=== PATIENT | male | born 1990 | race Caucasian/White ===

== ENCOUNTER 2017-03-18 14:39 | Emergency (ER) | payer MEDICAID ==
[~2017-03-18] VITALS: Ht 175.3 cm; Wt 95.0 kg
[~2017-03-18 14:39] MED LIST: BUPR1FIL SL; CLON-275 PO; CLON2TAB2; HYDR-67; IBUP200C8; METH5TAB2 PO; OMEP10CA4 PO; TRAM100C2
[2017-03-18 14:46] VITALS: BP 151/95
[2017-03-18 16:20] LABS: BLOOD UREA NITROGEN 7 mg/dL (7-18)
[2017-03-18] MEDS ORDERED: IBUPROFEN 200 MG TABLET ONE (16:48)
[2017-03-18] MEDS ORDERED: IBUPROFEN 200 MG TABLET PO ONE (17:00)
== END 2017-03-18 17:14 | disposition home or self-care (01) ==
LOC: ED 17:08
DX: M54.16 Radiculopathy, lumbar region (principal); M25.552 Pain in left hip; M25.551 Pain in right hip; M25.562 Pain in left knee; M25.561 Pain in right knee; M25.572 Pain in left ankle and joints of left foot; M25.571 Pain in right ankle and joints of right foot; I10 Essential (primary) hypertension
CPT/HCPCS: 36415; 80048; 82040; 82550; 83735; 99284

== ENCOUNTER 2019-06-13 00:08 | Emergency (ER) | payer MEDICAID ==
[~2019-06-13] VITALS: Ht 175.3 cm; Wt 82.0 kg
[~2019-06-13 00:08] MED LIST changes: -CLON2TAB2; +CLON2TAB9; -OMEP10CA4 PO; +OMEP10CA5 PO
[2019-06-13] MEDS ORDERED: BUPR1FIL5 PO (00:21)
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
[2019-06-13] MEDS ORDERED: HYDROcodone/APAP 5/325 TABLET PO PRN (01:00)
[2019-06-13] MEDS ORDERED: HYDROcodone/APAP 5/325 TABLET ONE (01:13)
[2019-06-13] MEDS ORDERED: ACETAMINOPHEN 500 MG TABLET ONE ×2 (01:36→02:23)
[2019-06-13] MEDS ORDERED: KETOROLAC 30 MG/1 ML ONE (02:23)
[2019-06-13] MEDS ORDERED: ACETAMINOPHEN 500 MG TABLET PO ONE (02:30)
[2019-06-13] MEDS ORDERED: KETOROLAC 30 MG/1 ML IM ONE (02:30)
[2019-06-13] MEDS ORDERED: METHOCARBAMOL 750 MG TABLET ONE ×2 (02:31)
--- NOTE | 2019-06-13 02:38 | NUR ---
patient medicated for pain NSAIDS. no narcotics. discharged with instruction. verbalized understanding.
[2019-06-13 02:39] VITALS: BP 142/78
[2019-06-13] MEDS ORDERED: METHOCARBAMOL 750 MG TABLET PO ONE (03:00)
== END 2019-06-13 02:41 | disposition home or self-care (01) ==
LOC: ED 02:35
DX: S22.31XA Fracture of one rib, right side, initial encounter for closed fracture (principal); M25.511 Pain in right shoulder; M79.621 Pain in right upper arm; M25.512 Pain in left shoulder; I10 Essential (primary) hypertension; R51 Headache; Y04.8XXA Assault by other bodily force, initial encounter; Y93.89 Activity, other specified; Y92.009 Unspecified place in unspecified non-institutional (private) residence as the place of occurrence of the external cause; Y99.8 Other external cause status
CPT/HCPCS: 70450; 71045; 72072; 72125; 73030; 73564; 96372; 99285; J1885

== ENCOUNTER 2019-10-30 10:11 | Inpatient (IN) | payer MEDICAID ==
[~2019-10-30] VITALS: Ht 175.3 cm; Wt 89.3 kg
[~2019-10-30 10:11] MED LIST changes: +BUPR1FIL5 PO
--- NOTE | 2019-10-30 10:17 | NUR ---
EKG IN TRIAGE
--- NOTE | 2019-10-30 10:35 | NUR ---
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
--- NOTE | 2019-10-30 10:48 | NUR ---
FIRST CONTACT WITH PT. UNABLE TO KEEP ANY FOOD OR DRINK DOWN FOR 3 DAYS. HX OF PANCREATITIS AND IT FEELS THE SAME. HX OF ETOH. C/O ABD PAIN WITH N/V. PT'S AOX4. RESPS EVEN AND UNLABORED. SINUS TACHY RATE 130'S ON [employer] AT THIS TIME. PT DENIES CP/SOB. ALL MONITORS IN PLACE. CALL LIGHT WITHIN REACH. EDMD AT BEDSIDE TO EVALUATE AT THIS TIME.
[2019-10-30] MEDS ORDERED: FAMOTIDINE 20 MG/2 ML ONE (10:53)
[2019-10-30] MEDS ORDERED: MORPHINE SULFATE 4 MG/ML, 1ML ONE (10:53)
[2019-10-30] MEDS ORDERED: ONDANSETRON 2MG/ML, 2ML ONE (10:53)
--- NOTE | 2019-10-30 10:58 | NUR ---
P TO XRAY AT THIS TIME.
--- NOTE | 2019-10-30 10:58 | NUR ---
PT PROVIDED URINE SAMPLE. URINE COLLECTED. UA SENT AT THIS TIME.
[2019-10-30] MEDS ORDERED: SODIUM CHLORIDE 0.9% 1,000ML IVBOLUS ONE (11:00)
[2019-10-30] MEDS ORDERED: ONDANSETRON 2MG/ML, 2ML IVPush ONE (11:00)
[2019-10-30] MEDS ORDERED: SODIUM CHLORIDE FLUSH 10ML SYR IVF ONE (11:00)
[2019-10-30] MEDS ORDERED: FAMOTIDINE 20 MG/2 ML IV ONE (11:00)
[2019-10-30] MEDS: MORPHINE SULFATE 4 MG/ML, 1ML IVPush PRN (11:14)
--- NOTE | 2019-10-30 11:21 | NUR ---
PIV EST ON R FOREARM WITH NO COMPLICATIONS. PT MEDICATED PER EMAR. NS INFUSING AT THIS TIME. PT TOLERATED WELL.
[2019-10-30 11:28] LABS: MICROSCOPIC INDICATED
[2019-10-30 11:44] LABS: MEAN CORPUSCULAR HEMOGLOBIN 33.3 pg (27.5-34.5); MEAN CORPUSCULAR HGB CONC 33.6 g/dL (33.2-36.2); MEAN CORPUSCULAR VOLUME 99.1 fL (81-97); MEAN PLATELET VOLUME 8.1 fL (7.4-10.4); PLATELET COUNT 240 x10^3/uL (130-400); RED BLOOD COUNT 4.53 x10^6/uL (4.38-5.82); RED CELL DISTRIBUTION WIDTH 17.4 % (9.4-14.8)
[2019-10-30 11:56] LABS: ALANINE AMINOTRANSFERASE 75 U/L (12-78); ANION GAP 10 mmol/L (5-15); CALCIUM 8.6 mg/dL (8.5-10.1); CHLORIDE 95 mmol/L (98-107); CREATININE 0.73 mg/dL (0.7-1.3)
[2019-10-30 11:58] LABS: ALKALINE PHOSPHATASE 197 U/L (45-117); BILIRUBIN,TOTAL 1.7 mg/dL (0.2-1.0); TOTAL PROTEIN 8.5 g/dL (6.4-8.2)
[2019-10-30] MEDS ORDERED: POTASSIUM CHLORIDE 40 MEQ in SODIUM CHLORIDE 0.9% 500 ML IV ONE (12:00)
[2019-10-30] MEDS ORDERED: SODIUM CHLORIDE 0.9% 1,000 ML IV ONE (12:01)
[2019-10-30 12:15] LABS: MD YES
[2019-10-30] MEDS ORDERED: LISI-170 PO (12:16)
[2019-10-30] MEDS ORDERED: METO25TA35 PO (12:16)
[2019-10-30] MEDS ORDERED: METH750T87 PO (12:17)
[2019-10-30] MEDS ORDERED: IBUP-1223 PO (12:17)
[2019-10-30 12:18] LABS: BAND#(MANUAL) 1.24 x10^3/uL; BANDS%(MANUAL) 9 % (0-7); LYMPH#(MANUAL) 0.83 x10^3/uL (1-3.4); LYMPHS% (MANUAL) 6 % (22-44); MONOS#(MANUAL) 1.52 x10^3/uL (0.3-2.7); MONOS% (MANUAL) 11 % (2-9); SEG#(MANUAL) 10.21 x10^3/uL (1.8-6.8); SEGS% (MANUAL) 74 % (42-75)
[2019-10-30 12:19] LABS: <RBC MORPHOLOGY> NORMAL; TOXIC GRAN 1+
[2019-10-30 12:20] LABS: <PLATELET ESTIMATE> ADEQUATE; <PLT MORPHOLOGY> NORMAL PLT MORPH; PMNS WITH VACUOLES 1+
--- NOTE | 2019-10-30 12:20 | NUR ---
MEDICATION ORDERED FROM PHARMACY AT THIS TIME.
--- NOTE | 2019-10-30 12:28 | NUR ---
THIS RN CALLED FOR REPORT X1. NO ANSWER.
[2019-10-30] MEDS ORDERED: LIDODERM 5% PATCH TD PRN (12:30)
[2019-10-30] MEDS ORDERED: BISACODYL 10 MG SUPP PR PRN (12:30)
[2019-10-30] MEDS: NICOTINE 21 MG/24 HR PATCH.TD24 TD SCH (12:30)
[2019-10-30] MEDS ORDERED: hydrALAzine 20 MG/ML, 1ML IVPush PRN (12:30)
--- NOTE | 2019-10-30 12:36 | NUR ---
REPORT GIVEN TO KAILYN LINARES. ALL QUESTIONS ANSWERED.
[2019-10-30 12:48] LABS: INTERNATIONAL NORMALIZED RATIO 2.7 (0.93-1.1); PROTHROMBIN TIME 28.9 Seconds (9.6-11.5)
[2019-10-30 13:03] LABS: HCT (SEDRATE) 41.5 % (39.2-51.8)
[2019-10-30 13:21] VITALS: BP 142/108
[2019-10-30 13:33] LABS: FREE T4 (FREE THYROXINE) 1.96 ng/dL (0.76-1.46)
[2019-10-30 13:56] VITALS: BP 142/108
[2019-10-30] MEDS: POTASSIUM CHLORIDE 20 MEQ, MAGNESIUM SULFATE 2 GM, THIAMINE 200 MG, MVI ADULT 10 ML, FO... IV SCH ×2 (14:17→22:40)
[2019-10-30] MEDS: ENOXAPARIN 40 MG/0.4 ML SQ SCH (16:17)
[2019-10-30 18:27] VITALS: BP 131/89
[2019-10-30] MEDS: morphine SULFATE 10 MG/ML, 1ML IVPush PRN (18:36)
[2019-10-30] MEDS: ONDANSETRON 2MG/ML, 2ML IVPush PRN (18:36)
[2019-10-30] MEDS: LORazepam 2 MG/ML, 1ML IVPush PRN (21:00)
[2019-10-31 00:24] VITALS: BP 140/98
[2019-10-31] MEDS: morphine SULFATE 10 MG/ML, 1ML IVPush PRN ×4 (01:53→20:16)
[2019-10-31] MEDS: ONDANSETRON 2MG/ML, 2ML IVPush PRN ×2 (01:53→16:59)
[2019-10-31] MEDS: LORazepam 2 MG/ML, 1ML IVPush PRN ×3 (03:39→22:41)
[2019-10-31] MEDS: NS + 20MEQ KCL 1,000 ML IV SCH (05:00)
[2019-10-31 06:40] LABS: MEAN CORPUSCULAR HEMOGLOBIN 33.3 pg (27.5-34.5); MEAN CORPUSCULAR HGB CONC 33.3 g/dL (33.2-36.2); MEAN CORPUSCULAR VOLUME 99.8 fL (81-97); MEAN PLATELET VOLUME 7.8 fL (7.4-10.4); PLATELET COUNT 153 x10^3/uL (130-400); RED BLOOD COUNT 3.61 x10^6/uL (4.38-5.82)
[2019-10-31 06:52] LABS: CHLORIDE 105 mmol/L (98-107)
[2019-10-31 07:04] LABS: ALANINE AMINOTRANSFERASE 52 U/L (12-78); ALBUMIN 2.4 g/dL (3.4-5.0); ALKALINE PHOSPHATASE 138 U/L (45-117); ANION GAP 5 mmol/L (5-15); BILIRUBIN,TOTAL 2.8 mg/dL (0.2-1.0); CALCIUM 7.8 mg/dL (8.5-10.1); CHOL/HDL RATIO 7.4; CHOLESTEROL, TOTAL 126 mg/dL (140-239); CREATININE 0.44 mg/dL (0.7-1.3); HDL CHOL % 13 % (26-37); HDL CHOLESTEROL (DIRECT) 17 mg/dL (40-60); LDL CHOLESTEROL,CALCULATED 78 mg/dL (54-169); LDL/HDL RATIO 4.6 (0.5-3.0); TOTAL PROTEIN 6.4 g/dL (6.4-8.2); TRIGLYCERIDES 153 mg/dL (50-200); VLDL CHOLESTEROL 31 mg/dL (0-25)
[2019-10-31 07:11] LABS: BASOPHILS # (AUTO) 0.02 x10^3/uL (0-0.1); BASOPHILS % (AUTO) 0 % (0-1); EOSINOPHILS # (AUTO) 0.09 x10^3/uL (0-0.4); EOSINOPHILS % (AUTO) 1 % (1-7); LYMPHOCYTES % (AUTO) 20 % (22-44); MD SCAN; MONOCYTES # (AUTO) 0.44 x10^3/uL (0.2-0.8); MONOCYTES % (AUTO) 6 % (2-9); NEUTROPHILS # (AUTO) 4.94 x10^3/uL (1.8-6.8); NEUTROPHILS % (AUTO) 72 % (42-75)
[2019-10-31 07:25] VITALS: BP 140/100
[2019-10-31] MEDS: PANTOPRAZOLE 40 MG IV IVPush SCH (07:46)
[2019-10-31] MEDS: POTASSIUM CHLORIDE 20 MEQ, MAGNESIUM SULFATE 2 GM, THIAMINE 200 MG, MVI ADULT 10 ML, FO... IV SCH ×2 (10:37→19:06)
[2019-10-31] MEDS: NICOTINE 21 MG/24 HR PATCH.TD24 TD SCH (11:49)
[2019-10-31] MEDS: ENOXAPARIN 40 MG/0.4 ML SQ SCH (12:30)
[2019-10-31 14:33] VITALS: BP 129/94
[2019-10-31] MEDS ORDERED: POTASSIUM CHLORIDE 40 MEQ in SODIUM CHLORIDE 0.9% 500 ML IV ONE (15:00)
[2019-10-31 18:23] VITALS: BP 156/110
[2019-10-31 20:23] VITALS: BP 145/97
[2019-11-01 00:53] VITALS: BP 154/95
[2019-11-01] MEDS: NS + 20MEQ KCL 1,000 ML IV SCH ×3 (01:29→17:30)
[2019-11-01] MEDS: morphine SULFATE 10 MG/ML, 1ML IVPush PRN ×5 (04:03→23:12)
[2019-11-01] MEDS: ONDANSETRON 2MG/ML, 2ML IVPush PRN ×2 (04:03→14:47)
[2019-11-01] MEDS: LORazepam 2 MG/ML, 1ML IVPush PRN ×4 (05:21→23:12)
[2019-11-01] MEDS: POTASSIUM CHLORIDE 20 MEQ, MAGNESIUM SULFATE 2 GM, THIAMINE 200 MG, MVI ADULT 10 ML, FO... IV SCH ×2 (05:28→18:38)
[2019-11-01 06:11] LABS: BASOPHILS # (AUTO) 0.05 x10^3/uL (0-0.1); BASOPHILS % (AUTO) 1 % (0-1); EOSINOPHILS # (AUTO) 0.13 x10^3/uL (0-0.4); EOSINOPHILS % (AUTO) 2 % (1-7); LYMPHOCYTES # (AUTO) 1.16 x10^3/uL (1-3.4); LYMPHOCYTES % (AUTO) 16 % (22-44); MD NO; MEAN CORPUSCULAR HEMOGLOBIN 33.1 pg (27.5-34.5); MEAN CORPUSCULAR HGB CONC 33.1 g/dL (33.2-36.2); MEAN PLATELET VOLUME 7.6 fL (7.4-10.4); MONOCYTES # (AUTO) 0.41 x10^3/uL (0.2-0.8); MONOCYTES % (AUTO) 6 % (2-9); NEUTROPHILS # (AUTO) 5.64 x10^3/uL (1.8-6.8); NEUTROPHILS % (AUTO) 76 % (42-75); PLATELET COUNT 179 x10^3/uL (130-400); RED BLOOD COUNT 3.67 x10^6/uL (4.38-5.82)
[2019-11-01 06:16] LABS: ANION GAP 7 mmol/L (5-15); CHLORIDE 106 mmol/L (98-107)
[2019-11-01 06:18] VITALS: BP 135/96
[2019-11-01 06:42] LABS: HCT (SEDRATE) 36.7 % (39.2-51.8)
[2019-11-01] MEDS: PANTOPRAZOLE 40 MG IV IVPush SCH (08:43)
[2019-11-01] MEDS: ENOXAPARIN 40 MG/0.4 ML SQ SCH (12:30)
[2019-11-01] MEDS: NICOTINE 21 MG/24 HR PATCH.TD24 TD SCH (12:30)
[2019-11-01 14:16] VITALS: BP 138/94
[2019-11-01 18:43] VITALS: BP 157/115
[2019-11-01 23:30] VITALS: BP 131/95
[2019-11-02] MEDS: LABETALOL 5MG/ML, 20ML IVPush PRN ×3 (00:03→17:45)
[2019-11-02 00:41] VITALS: BP 140/91
[2019-11-02] MEDS: NS + 20MEQ KCL 1,000 ML IV SCH ×2 (01:30→17:00)
[2019-11-02] MEDS: POTASSIUM CHLORIDE 20 MEQ, MAGNESIUM SULFATE 2 GM, THIAMINE 200 MG, MVI ADULT 10 ML, FO... IV SCH ×2 (03:55→14:29)
[2019-11-02] MEDS: morphine SULFATE 10 MG/ML, 1ML IVPush PRN ×4 (04:58→22:49)
[2019-11-02 06:32] VITALS: BP 148/98
[2019-11-02 06:49] LABS: BASOPHILS # (AUTO) 0.03 x10^3/uL (0-0.1); BASOPHILS % (AUTO) 0 % (0-1); EOSINOPHILS # (AUTO) 0.11 x10^3/uL (0-0.4); EOSINOPHILS % (AUTO) 1 % (1-7); LYMPHOCYTES # (AUTO) 1.65 x10^3/uL (1-3.4); LYMPHOCYTES % (AUTO) 16 % (22-44); MD NO; MEAN CORPUSCULAR HEMOGLOBIN 33.6 pg (27.5-34.5); MEAN CORPUSCULAR HGB CONC 33.3 g/dL (33.2-36.2); MEAN CORPUSCULAR VOLUME 100.8 fL (81-97); MEAN PLATELET VOLUME 7.2 fL (7.4-10.4); MONOCYTES # (AUTO) 0.61 x10^3/uL (0.2-0.8); MONOCYTES % (AUTO) 6 % (2-9); NEUTROPHILS # (AUTO) 7.69 x10^3/uL (1.8-6.8); NEUTROPHILS % (AUTO) 76 % (42-75); PLATELET COUNT 253 x10^3/uL (130-400); RED BLOOD COUNT 3.66 x10^6/uL (4.38-5.82); RED CELL DISTRIBUTION WIDTH 17.9 % (9.4-14.8)
[2019-11-02 06:57] LABS: CHLORIDE 104 mmol/L (98-107)
[2019-11-02 07:03] LABS: ANION GAP 6 mmol/L (5-15); CALCIUM 8.2 mg/dL (8.5-10.1); CREATININE 0.49 mg/dL (0.7-1.3)
[2019-11-02] MEDS: PANTOPRAZOLE 40 MG IV IVPush SCH (07:45)
[2019-11-02] MEDS: LORazepam 2 MG/ML, 1ML IVPush PRN ×3 (07:59→18:15)
[2019-11-02] MEDS: ONDANSETRON 2MG/ML, 2ML IVPush PRN (09:12)
[2019-11-02 12:19] VITALS: BP 137/93
[2019-11-02] MEDS: NICOTINE 21 MG/24 HR PATCH.TD24 TD SCH (12:30)
[2019-11-02] MEDS: ENOXAPARIN 40 MG/0.4 ML SQ SCH (13:41)
[2019-11-02 18:34] VITALS: BP 125/86
[2019-11-03] MEDS: LORazepam 2 MG/ML, 1ML IVPush PRN ×3 (00:36→14:10)
[2019-11-03 00:48] VITALS: BP 134/92
[2019-11-03] MEDS: NS + 20MEQ KCL 1,000 ML IV SCH ×2 (02:08→11:27)
[2019-11-03 06:00] LABS: ANION GAP 5 mmol/L (5-15); BASOPHILS # (AUTO) 0.03 x10^3/uL (0-0.1); BASOPHILS % (AUTO) 0 % (0-1); CALCIUM 8.2 mg/dL (8.5-10.1); CHLORIDE 107 mmol/L (98-107); CREATININE 0.51 mg/dL (0.7-1.3); EOSINOPHILS # (AUTO) 0.08 x10^3/uL (0-0.4); EOSINOPHILS % (AUTO) 1 % (1-7); LYMPHOCYTES # (AUTO) 1.36 x10^3/uL (1-3.4); LYMPHOCYTES % (AUTO) 13 % (22-44); MD NO; MEAN CORPUSCULAR HGB CONC 32.4 g/dL (33.2-36.2); MEAN CORPUSCULAR VOLUME 101.9 fL (81-97); MEAN PLATELET VOLUME 7.5 fL (7.4-10.4); MONOCYTES # (AUTO) 0.74 x10^3/uL (0.2-0.8); MONOCYTES % (AUTO) 7 % (2-9); NEUTROPHILS # (AUTO) 8.15 x10^3/uL (1.8-6.8); NEUTROPHILS % (AUTO) 79 % (42-75); PLATELET COUNT 250 x10^3/uL (130-400); RED BLOOD COUNT 3.48 x10^6/uL (4.38-5.82); RED CELL DISTRIBUTION WIDTH 18.8 % (9.4-14.8)
[2019-11-03] MEDS: ONDANSETRON 2MG/ML, 2ML IVPush PRN (06:16)
[2019-11-03] MEDS: morphine SULFATE 10 MG/ML, 1ML IVPush PRN ×3 (06:16→20:39)
[2019-11-03 06:55] VITALS: BP 142/103
[2019-11-03] MEDS: PANTOPRAZOLE 40 MG IV IVPush SCH (07:44)
[2019-11-03] MEDS: POTASSIUM CHLORIDE 20 MEQ, MAGNESIUM SULFATE 2 GM, THIAMINE 200 MG, MVI ADULT 10 ML, FO... IV SCH ×3 (08:30→18:44)
[2019-11-03] MEDS: LABETALOL 5MG/ML, 20ML IVPush PRN (10:58)
[2019-11-03 12:06] VITALS: BP 136/94
[2019-11-03] MEDS: NICOTINE 21 MG/24 HR PATCH.TD24 TD SCH (12:30)
[2019-11-03] MEDS: ENOXAPARIN 40 MG/0.4 ML SQ SCH (12:30)
[2019-11-03] MEDS ORDERED: LISINOPRIL 10 MG TABLET ONE (15:32)
[2019-11-03] MEDS: LISINOPRIL 20 MG TABLET PO SCH (15:35)
[2019-11-03 20:37] VITALS: BP 147/109
[2019-11-03] MEDS: METOPROLOL TARTRATE 25 MG TAB PO SCH (20:39)
[2019-11-04 00:37] VITALS: BP 150/98
[2019-11-04] MEDS: LORazepam 2 MG/ML, 1ML IVPush PRN ×3 (00:37→20:38)
[2019-11-04] MEDS: POTASSIUM CHLORIDE 20 MEQ, MAGNESIUM SULFATE 2 GM, THIAMINE 200 MG, MVI ADULT 10 ML, FO... IV SCH ×2 (01:30→15:36)
[2019-11-04] MEDS: morphine SULFATE 10 MG/ML, 1ML IVPush PRN ×3 (01:50→20:38)
[2019-11-04 06:13] LABS: BASOPHILS # (AUTO) 0.01 x10^3/uL (0-0.1); BASOPHILS % (AUTO) 0 % (0-1); EOSINOPHILS # (AUTO) 0.15 x10^3/uL (0-0.4); EOSINOPHILS % (AUTO) 2 % (1-7); LYMPHOCYTES # (AUTO) 1.53 x10^3/uL (1-3.4); LYMPHOCYTES % (AUTO) 15 % (22-44); MD NO; MEAN CORPUSCULAR HEMOGLOBIN 33.8 pg (27.5-34.5); MEAN CORPUSCULAR VOLUME 102.6 fL (81-97); MEAN PLATELET VOLUME 7.8 fL (7.4-10.4); MONOCYTES # (AUTO) 0.76 x10^3/uL (0.2-0.8); MONOCYTES % (AUTO) 8 % (2-9); NEUTROPHILS # (AUTO) 7.64 x10^3/uL (1.8-6.8); NEUTROPHILS % (AUTO) 76 % (42-75); PLATELET COUNT 297 x10^3/uL (130-400); RED BLOOD COUNT 3.76 x10^6/uL (4.38-5.82); RED CELL DISTRIBUTION WIDTH 18.7 % (9.4-14.8)
[2019-11-04 06:25] LABS: CHLORIDE 104 mmol/L (98-107)
[2019-11-04 06:43] LABS: ALANINE AMINOTRANSFERASE 67 U/L (12-78); ALBUMIN 2.9 g/dL (3.4-5.0); ALKALINE PHOSPHATASE 166 U/L (45-117); ANION GAP 5 mmol/L (5-15); BILIRUBIN,TOTAL 1.8 mg/dL (0.2-1.0); CREATININE 0.48 mg/dL (0.7-1.3); TOTAL PROTEIN 7.8 g/dL (6.4-8.2)
[2019-11-04 06:45] LABS: HCT (SEDRATE) 38.6 % (39.2-51.8)
[2019-11-04 07:30] VITALS: BP 130/93
[2019-11-04] MEDS ORDERED: LISINOPRIL 10 MG TABLET ONE (08:33)
[2019-11-04] MEDS: METOPROLOL TARTRATE 25 MG TAB PO SCH ×2 (08:43→20:38)
[2019-11-04] MEDS: PANTOPRAZOLE 40 MG IV IVPush SCH (08:43)
[2019-11-04] MEDS: LISINOPRIL 20 MG TABLET PO SCH (08:44)
[2019-11-04] MEDS: MORPHINE SULFATE 4 MG/ML, 1ML IVPush PRN (10:24)
[2019-11-04] MEDS: ENOXAPARIN 40 MG/0.4 ML SQ SCH (12:25)
[2019-11-04] MEDS: NICOTINE 21 MG/24 HR PATCH.TD24 TD SCH (12:25)
[2019-11-04 13:44] VITALS: BP 134/86
[2019-11-04 20:00] VITALS: BP 117/84
[2019-11-04] MEDS: ONDANSETRON 2MG/ML, 2ML IVPush PRN (20:37)
[2019-11-05 02:00] VITALS: BP 128/85
[2019-11-05] MEDS: LORazepam 2 MG/ML, 1ML IVPush PRN ×2 (04:07→11:02)
[2019-11-05] MEDS: morphine SULFATE 10 MG/ML, 1ML IVPush PRN (06:38)
[2019-11-05] MEDS: PANTOPRAZOLE 40 MG IV IVPush SCH (06:38)
[2019-11-05 06:53] LABS: BASOPHILS # (AUTO) 0.03 x10^3/uL (0-0.1); BASOPHILS % (AUTO) 0 % (0-1); EOSINOPHILS # (AUTO) 0.11 x10^3/uL (0-0.4); EOSINOPHILS % (AUTO) 2 % (1-7); LYMPHOCYTES # (AUTO) 1.41 x10^3/uL (1-3.4); LYMPHOCYTES % (AUTO) 20 % (22-44); MD NO; MEAN CORPUSCULAR HEMOGLOBIN 34.1 pg (27.5-34.5); MEAN CORPUSCULAR HGB CONC 33.6 g/dL (33.2-36.2); MEAN CORPUSCULAR VOLUME 101.6 fL (81-97); MEAN PLATELET VOLUME 8.4 fL (7.4-10.4); MONOCYTES # (AUTO) 0.75 x10^3/uL (0.2-0.8); MONOCYTES % (AUTO) 11 % (2-9); NEUTROPHILS # (AUTO) 4.78 x10^3/uL (1.8-6.8); NEUTROPHILS % (AUTO) 68 % (42-75); PLATELET COUNT 310 x10^3/uL (130-400); RED BLOOD COUNT 3.68 x10^6/uL (4.38-5.82); RED CELL DISTRIBUTION WIDTH 18.2 % (9.4-14.8)
[2019-11-05 07:01] LABS: ANION GAP 4 mmol/L (5-15); CALCIUM 9.3 mg/dL (8.5-10.1); CHLORIDE 101 mmol/L (98-107); CREATININE 0.52 mg/dL (0.7-1.3)
[2019-11-05 07:27] VITALS: BP 130/92
[2019-11-05] MEDS ORDERED: LISINOPRIL 10 MG TABLET ONE (07:48)
[2019-11-05] MEDS: LISINOPRIL 20 MG TABLET PO SCH (07:55)
[2019-11-05] MEDS: METOPROLOL TARTRATE 25 MG TAB PO SCH (07:56)
[2019-11-05] MEDS: ONDANSETRON 2MG/ML, 2ML IVPush PRN (07:56)
[2019-11-05] MEDS ORDERED: ONDA4VIA60 PO (11:48)
== END 2019-11-05 12:41 | disposition home or self-care (01) | DRG 439 ==
LOC: ED 12:12 → SUATTDRO 12:24 → EDIP 12:25 → 4EST 13:04 → DCLOUNGE 11-05 12:36
PROVIDERS: ADMIT Family Medicine; ATTEND Hospitalist
DX: K85.90 Acute pancreatitis without necrosis or infection, unspecified (principal); F10.239 Alcohol dependence with withdrawal, unspecified; E87.6 Hypokalemia; F41.9 Anxiety disorder, unspecified; I10 Essential (primary) hypertension; Z80.9 Family history of malignant neoplasm, unspecified; Z87.891 Personal history of nicotine dependence
CPT/HCPCS: 36415; 74022; 96361; 96374; 96375; 99285; J3490; J7042; 76770; 80048; 80053; 80061; 81001; 82140; 83690; 84439; 84443; 85025; 85610; 85651; 86140; 93005; G0378; J1650; J2405; J3411; J3475; J3480; C9113; J0360; J2060; J2270; J7030; J7040

== ENCOUNTER 2019-11-30 01:05 | Emergency (ER) | payer MEDICAID ==
[~2019-11-30] VITALS: Ht 175.3 cm; Wt 83.0 kg
[~2019-11-30 01:05] MED LIST changes: +IBUP-1223 PO; +LISI-170 PO; +METH750T87 PO; +METO25TA35 PO; +ONDA4VIA60 PO
[2019-11-30] MEDS ORDERED: MORPHINE SULFATE 4 MG/ML, 1ML IVPush PRN (01:30)
[2019-11-30] MEDS ORDERED: ONDANSETRON 2MG/ML, 2ML IVPush ONE (01:30)
[2019-11-30] MEDS ORDERED: SODIUM CHLORIDE 0.9% 1,000ML IVBOLUS ONE (01:30)
[2019-11-30] MEDS ORDERED: MAALOX/HYOSCYAMINE/LIDOCAINE 45 ML BTL PO ONE (01:30)
[2019-11-30] MEDS ORDERED: SODIUM CHLORIDE FLUSH 10ML SYR IVF ONE (01:30)
--- NOTE | 2019-11-30 01:33 | NUR ---
at bedside for assessment. Pt states recent hospitalization for pancreatitis. States heavy etoh use and drink 1 pint of hard etoh/day. C/o LUQ abd pain. Monitoring applied. Pt tachycardic. VS otherwise stable. Denies bloody stool, emesis, and gu s/s.
[2019-11-30] MEDS ORDERED: ONDANSETRON 2MG/ML, 2ML ONE (01:36)
[2019-11-30] MEDS ORDERED: MORPHINE SULFATE 4 MG/ML, 1ML ONE (01:37)
[2019-11-30] MEDS ORDERED: MAALOX/HYOSCYAMINE/LIDOCAINE 45 ML BTL ONE (01:37)
[2019-11-30 01:50] LABS: BASOPHILS # (AUTO) 0.03 x10^3/uL (0-0.1); BASOPHILS % (AUTO) 1 % (0-1); EOSINOPHILS # (AUTO) 0.07 x10^3/uL (0-0.4); EOSINOPHILS % (AUTO) 2 % (1-7); LYMPHOCYTES # (AUTO) 2.45 x10^3/uL (1-3.4); LYMPHOCYTES % (AUTO) 50 % (22-44); MD NO; MEAN CORPUSCULAR HEMOGLOBIN 34.3 pg (27.5-34.5); MEAN CORPUSCULAR HGB CONC 33.3 g/dL (33.2-36.2); MEAN CORPUSCULAR VOLUME 103.2 fL (81-97); MEAN PLATELET VOLUME 7.2 fL (7.4-10.4); MONOCYTES # (AUTO) 0.44 x10^3/uL (0.2-0.8); MONOCYTES % (AUTO) 9 % (2-9); NEUTROPHILS # (AUTO) 1.87 x10^3/uL (1.8-6.8); NEUTROPHILS % (AUTO) 39 % (42-75); PLATELET COUNT 180 x10^3/uL (130-400); RED BLOOD COUNT 3.85 x10^6/uL (4.38-5.82)
[2019-11-30 02:02] LABS: ALANINE AMINOTRANSFERASE 37 U/L (12-78); ALBUMIN 3.1 g/dL (3.4-5.0); CHLORIDE 108 mmol/L (98-107); CREATININE 0.67 mg/dL (0.7-1.3)
[2019-11-30 02:13] LABS: ALKALINE PHOSPHATASE 207 U/L (45-117); BILIRUBIN,TOTAL 0.8 mg/dL (0.2-1.0); TOTAL PROTEIN 7.9 g/dL (6.4-8.2)
--- NOTE | 2019-11-30 02:43 | NUR ---
Pt amb w/ steady gait to rr.
[2019-11-30] MEDS ORDERED: LORazepam 1MG TABLET ONE (03:48)
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
[2019-11-30 03:58] LABS: ANION GAP 11 mmol/L (5-15)
[2019-11-30] MEDS ORDERED: LORazepam 1MG TABLET PO ONE (04:00)
[2019-11-30 04:04] VITALS: BP 107/73
== END 2019-11-30 05:43 | disposition home or self-care (01) ==
LOC: ED 04:06
DX: K29.20 Alcoholic gastritis without bleeding (principal); R10.12 Left upper quadrant pain; F10.220 Alcohol dependence with intoxication, uncomplicated; R11.2 Nausea with vomiting, unspecified; R00.0 Tachycardia, unspecified; I10 Essential (primary) hypertension; Z72.9 Problem related to lifestyle, unspecified; Y90.0 Blood alcohol level of less than 20 mg/100 ml
CPT/HCPCS: 36415; 71045; 80053; 80307; 83690; 85025; 93005; 96361; 96374; 96375; 99285; J2270; J2405; J7030